=== PATIENT | male | born 1935 | race Caucasian/White ===

== ENCOUNTER 2017-03-14 21:48 | Emergency (ER) | payer MEDICARE ==
[2017-03-14] MEDS ORDERED: predniSONE 20 MG TAB ONE (22:02)
[2017-03-14] MEDS ORDERED: Famotidine In NaCl 20 mg/50 ml Premix Bag ONE (22:05)
== END 2017-03-14 22:38 | disposition home or self-care (01) ==
LOC: BURERS 21:48
DX: T63.461A Toxic effect of venom of wasps, accidental (unintentional), initial encounter (principal); E11.9 Type 2 diabetes mellitus without complications; I25.10 Atherosclerotic heart disease of native coronary artery without angina pectoris; I10 Essential (primary) hypertension
CPT/HCPCS: 99283; J7506

== ENCOUNTER 2020-05-30 17:27 | Emergency (ER) | payer MEDICARE ==
[2020-05-30 18:06] LABS: Bilirubin Negative (Negative); Blood, Urine Moderate (Negative); Clarity Clear (Clear); Glucose, Urine (Dipstick) Negative (Negative); Ketone, Urine Negative (Negative); Leukocyte Negative (Negative); Nitrite Negative (Negative); Protein, Urine (Dipstick) 30 mg/dL (Neg-Trace); Urobilinogen 0.2 mg/dL (Less than 2); pH, Urine 7.5 (5.0-9.0)
[2020-05-30 18:08] LABS: Bacteria/HPF None Seen HPF (None Seen); Squamous Epithelial 0-3 HPF (0-3); WBC/HPF None Seen HPF (0-3)
== END 2020-05-30 18:42 | disposition home or self-care (01) ==
LOC: BURERS 17:27
DX: N40.0 Benign prostatic hyperplasia without lower urinary tract symptoms (principal)
CPT/HCPCS: 81003; 81015; 99283

== ENCOUNTER 2020-07-02 00:02 | Emergency (ER) | payer MEDICARE | END 2020-07-02 00:50 | disposition home or self-care (01) | LOC: BURERS 00:02 | DX: I10 Essential (primary) hypertension (principal); Z79.899 Other long term (current) drug therapy; E11.9 Type 2 diabetes mellitus without complications; E78.5 Hyperlipidemia, unspecified; E78.00 Pure hypercholesterolemia, unspecified | CPT/HCPCS: 99283 ==

== ENCOUNTER 2025-04-14 15:20 | Emergency (ER) | payer MEDICARE ==
[2025-04-14 16:25] LABS: Hematocrit 41.3 % (42.0-52.0); Hemoglobin 14.6 g/dL (14.0-18.0); Mean Corpuscular Hemoglobin 29.7 pg (27.0-31.0); Mean Corpuscular Volume 83.7 fl (78.0-98.0); Platelet Count 150 10x3/uL (130-400); Red Blood Cell (RBC) Count 4.93 mill/uL (4.70-6.10); White Blood Cell (WBC) Count 5.6 10x3/uL (4.8-10.8)
[2025-04-14 16:38] LABS: ALT (SGPT) 13 U/L (Less than 45); AST (SGOT) 26 U/L (11-34); Albumin 3.9 g/dL (3.1-4.5); Alkaline Phosphatase 46 U/L (40-110); Anion Gap 19 mmol/L (10-20); BUN (Urea Nitrogen) 26 mg/dL (8.4-25.7); Bilirubin, Total 1.1 mg/dL (0.3-1.2); Calc. Creatinine Clearance 0 mL/min (70-130); Calcium 9.8 mg/dL (7.8-10.44); Carbon Dioxide 26 mmol/L (23-31); Chloride 104 mmol/L (98-107); Globulin 2.4 g/dL (2.4-3.5); Glucose 139 mg/dL (83-110); Potassium 4.0 mmol/L (3.5-5.1); Sodium 145 mmol/L (136-145)
[2025-04-14 16:54] LABS: MDiff Complete? YES
== END 2025-04-14 21:48 | disposition home or self-care (01) ==
LOC: BURERS 15:20
DX: K40.20 Bilateral inguinal hernia, without obstruction or gangrene, not specified as recurrent (principal); E11.9 Type 2 diabetes mellitus without complications; I10 Essential (primary) hypertension
CPT/HCPCS: 74177; 80053; 83605; 85025; 96374; J2250; J2270